=== PATIENT | male | born 1970 | race Caucasian/White ===

== ENCOUNTER 2021-07-26 01:41 | Observation (INO) | payer BC, SELFPAY ==
[2021-07-26] VITALS (14 sets, daily range): BP systolic 108–146; BP diastolic 64–93; PULSE 84–115; RESP 16–20; TEMP 35.9–37.2; O2SAT 93–100; BMI 26.7
--- NOTE | ~2021-07-26 | CT_ITS ---
EXAMINATION: CT BRAIN W/O DATE: 07/26/2021 02:37 INDICATION: Hallucinations. TECHNIQUE: Computed tomography (CT) of the head was performed without intravenous contrast. The dose- length product was 605.33 mGy-cm. Automated exposure control and iterative reconstruction technique w ere employed. COMPARISON: No prior studies for comparison. FINDINGS: Normal brain parenchymal volume for age. Normal flores-white differentiation. No acute intrac ranial hemorrhage, infarction, mass or mass effect. No ventriculomegaly or midline shift. Midline sagittal images demonstrate a normal corpus callosum, c raniovertebral junction and sella turcica. Basilar cisterns are patent. Paranasal sinuses and mastoids are pneumatized. No depressed skull fractures. IMPRESSION: 1. No acute intracranial abnormality. Reviewed, dictated and finalized at location A.
--- NOTE | ~2021-07-26 | XR_ITS ---
EXAMINATION: XR chest 1V portable INDICATION: Hyponatremia, unresponsive TECHNIQUE: Portable AP chest at 0913 hours COMPARISON: None available FINDINGS: The lungs are free of acute opacities. There is no pleural effusion or pneumothorax. The ca rdiomediastinal silhouette is normal. IMPRESSION: 1. No acute cardiopulmonary abnormality. Reviewed, dictated and finalized at location B.
--- NOTE | 2021-07-26 01:58 | ED.PSYCH ---
HPI - Psych General Chief Complaint: Psychiatric Symptoms Stated Complaint: Alter Mental Status Time Seen by Provider: 07/26/21 01:54 Source: patient and EMS Mode of arrival: EMS Limitations: clinical condition History of Present Illness HPI Narrative: Pt called PD because he believed armed intruders were breaking in his house. PD said no such thing was occuring. EMS transported here for eval. Pt does not have a known psych history. Pt did take two doses suboxone tonight but has been taking one dose for awhile History of same: No Associated psychiatric symptoms: visual hallucinations Treatments prior to arrival: none Related Data Home Medications Medication Instructions Recorded Confirmed buprenorphine-naloxone [Suboxone] 8 film SUBLINGUAL DIRECTED 07/26/21 07/26/21 gabapentin 400 mg PO DIRECTED 07/26/21 07/26/21 lisinopril 5 mg PO DIRECTED 07/26/21 07/26/21 metformin 500 mg PO DIRECTED 07/26/21 07/26/21 metoprolol tartrate 25 mg PO DIRECTED 07/26/21 07/26/21 Allergies Allergy/AdvReac Type Severity Reaction Status Date / Time No Known Allergies Allergy Verified 07/26/21 01:49 Review of Systems Review of Systems: All systems reviewed & are unremarkable except as noted in HPI and below [facility] Social History Social History Substance use type: prescription drug Exam Const: General: no acute distress Orientation/consciousness: patient oriented x3 HENMT: Head: normal to inspection Eyes: Conjunctivae: conjunctivae normal Pupils: Equal, round and reactive pupils present Neck: Neck: normal visual inspection Resp: Effort & Inspection: normal respiratory effort Auscultation: clear to auscultation bilaterally Cardio: Rate: regular rate Rhythm: regular rhythm GI: GI Palp: Yes Soft to palpation Auscultation: normal bowel sounds Skin: General skin exam: normal color Neuro: General: patient oriented x3, moves all extremities, no meningeal signs, no focal motor deficits and CN's II-XI intact bilaterally Cranial nerves: Yes Nystagmus not present Extrem: General: normal to inspection Psych: Appearance: grossly normal Attitude: cooperative Thought content: Yes Paranoid delusions present and Yes Hallucination(s) present Course Course Emergency Course: pt wants to leave and does not want IV fluids to correct his sodium. Pt is convinced his is here standing outside the room. Pt not capable of making informed decision and should not leave and is not capable of signing AMA right now. Unable to contact . Will call PD to assist in restraining and sedating the patient in order to treat him. PD has arrived. Will attempt to start IV and give fluids and sedation. signing out to dr love at 0600 Vital Signs Vital signs: Vital Signs Temperature 98.9 F 07/26/21 01:40 Pulse Rate 84 07/26/21 01:40 Respiratory Rate 16 07/26/21 01:40 Blood Pressure 141/93 H 07/26/21 01:40 Pulse Oximetry 96 07/26/21 01:40 Temperature 96.7 F L 07/26/21 05:13 Pulse Rate 115 H 07/26/21 05:13 Respiratory Rate 20 07/26/21 05:13 Blood Pressure 130/86 07/26/21 05:13 Pulse Oximetry 99 07/26/21 05:13 MDM - Psych Differential Diagnosis Differential diagnosis: Likely acute psychosis and drug-induced psychotic disorder Lab Data Attestation: I reviewed the patient's lab results. Lab results narrative: CT head negative Result diagrams: 07/26/21 02:10 07/26/21 02:10 Labs: Lab Results 07/26/21 07/26/21 07/26/21 Range/Units 02:10 02:10 02:10 WBC 11.1 H (4.8-10.8) K/mm3 RBC 3.70 L (4.70-6.10) M/mm3 Hgb 14.1 (14.0-18.0) g/dL Hct 40.9 (40.0-54.0) % MCV 110.5 H (78.0-102.0) fL MCH 38.1 H (27.0-31.0) pg MCHC 34.5 (32.0-36.0) g/dL RDW 12.5 (11.6-14.4) % Plt Count 104 L (150-420) K/mm3 MPV 10.5 (8.7-11.0) fl Immature Gran % (Auto) 0.6 H (0.0-0.0) % Neut % (Auto) 72.5 H (50.0-70.0) % Lymph
[2021-07-26 02:13] LABS: Basophils Absolute Auto 0.03 K/mm3 (0.00-0.10); Basophils Percent Auto 0.3 % (0.0-1.0); Eosinophils Percent Auto 0.9 % (1.0-6.0); Hematocrit 40.9 % (40.0-54.0); Hemoglobin 14.1 g/dL (14.0-18.0); Immature Granulocyte Absolute 0.07 K/mm3 (0.00-0.00); Immature Granulocyte Percent A 0.6 % (0.0-0.0); Lymphocytes Absolute Auto 2.04 K/mm3 (1.10-4.50); Lymphocytes Percent Auto 18.4 % (18.0-42.0); Mean Corpuscular HGB Conc 34.5 g/dL (32.0-36.0); Mean Corpuscular Hemoglobin 38.1 pg (27.0-31.0); Mean Corpuscular Volume 110.5 fL (78.0-102.0); Mean Platelet Volume 10.5 fl (8.7-11.0); Monocytes Absolute Auto 0.81 K/mm3 (0.10-0.90); Monocytes Percent Auto 7.3 % (2.0-11.0); Neutrophils Percent Auto 72.5 % (50.0-70.0); Platelet Count Result 104 K/mm3 (150-420); Red Cell Distribution Width 12.5 % (11.6-14.4); White Blood Count 11.1 K/mm3 (4.8-10.8)
[2021-07-26 02:31] LABS: Amphetamine Screen Urine Negative (Negative); Barbiturate Screen Urine Negative (Negative); Benzodiazepines Screen Urine Negative (Negative); Cannabinoid Screen Urine Negative (Negative); Cocaine Screen Urine Negative (Negative); Methadone Screen Urine Negative (Negative); Opiate Screen Urine Negative (Negative)
[2021-07-26 02:37] LABS: Alanine Aminotransferase 54 U/L (16-63); Albumin Level 3.5 g/dL (3.4-5.0); Alkaline Phosphatase 116 U/L (46-116); Anion Gap 12 mmol/L (8-16); Aspartate Amino Transferase 99 U/L (15-37); Bilirubin,Total 4.7 mg/dL (0.00-1.00); Blood Urea Nitrogen 17 mg/dL (7-18); Calcium 8.8 mg/dL (8.5-10.1); Carbon Dioxide 24 mmol/L (21-32); Chloride 88 mmol/L (98-108); Estimated CRCL calculation 77 ml/min; Estimated Glomerular Filt Rate > 60; Glucose 125 mg/dL (70-99); Osmolality Calculated 260 mOsm/kg (285-295); Potassium 3.8 mmol/L (3.5-5.1); Salicylate 0.4 mg/dL (2.8-20.0); Sodium 124 mmol/L (136-145); Thyroid Stimulating Hormone 2.44 uIU/mL (0.36-3.74); Total Protein 7.9 g/dL (6.4-8.2)
[2021-07-26 02:38] LABS: Acetaminophen < 2 ug/mL (10-30); Ethanol < 3 mg/dL (0-6)
--- NOTE | 2021-07-26 02:50 | PC.NURSE ---
RN updated pt on his lab results. RN educated on the importance of treatment and receiving IV fluids, but pt refused treatment stating he wanted to leave AMA. RN educated pt on the risks(up to ) of leaving without treatment. RN called pt's and got a voicemail. RN left a message and number to return a call. Pt is confused and does not want treatment.
[2021-07-26] MEDS: SODIUM CHLORIDE 0.9% IV 1,000 ML 125 ML IV CONT (03:19)
[2021-07-26] MEDS: LORazepam INJ (*CRX) 2 MG/ML VIAL IV PUSH ×2 (03:20→05:05)
[2021-07-26 04:34] LABS: Glucose Point of Care 88 mg/dl (65-105)
--- NOTE | 2021-07-26 04:39 | PC.NURSE ---
Pt is still confused and having visual hallucinations. Pt describes seeing children playing at the end of the waller. Pt is being cooperative and is able to be redirected. RN reassessed pt's blood glucose via finger stick and obtained a reading of 88. Pt has no complaints at this time. RN started sitter log at this time.
--- NOTE | 2021-07-26 04:55 | PC.NURSE ---
RN phoned ERP due to pt being restless and still confused. Pt is still able to be redirected and cooperating with staff. ERP ordered 2mg Ativan IV STAT. RN read back order.
--- NOTE | 2021-07-26 05:17 | PC.NURSE ---
Pt becoming more confused and agitated. Pt is becoming warm and diaphoretic. Pt is not able to be redirected at this time. RN alerted ERP for the possibility of restraints for the pt's protection.
--- NOTE | 2021-07-26 05:51 | PC.NURSE ---
Nursing staff applied Velcro restraints after all other alternatives were unsuccessful. RN attempted to divert, educate, have a sitter, reorientate, and had two 2mg Ativan IV injections. Pt was still pulling on IV line and not following directions. The restraints were applied. PMS was present after restraints were applied. Pt was moved to room 1 and placed on monitor. Pt has no complaints or requests at this time. RN was finally able to make contact with pt's . Pt's stated she will be on the way to the hospital.
--- NOTE | 2021-07-26 06:02 | PC.NURSE ---
RN team released pt from tied down restraints due to pt sleeping.
[2021-07-26] MEDS: DEXTROSE 5%/0.9% SOD CHL 500 ML 100 ML IV CONT (06:33)
[2021-07-26] MEDS: THIAMINE HCL 200 MG/2 ML VIAL 100 MG IV PUSH (06:34)
[2021-07-26 09:27] LABS: Anion Gap 10 mmol/L (8-16); Blood Urea Nitrogen 17 mg/dL (7-18); Calcium 8.8 mg/dL (8.5-10.1); Carbon Dioxide 25 mmol/L (21-32); Chloride 95 mmol/L (98-108); Estimated CRCL calculation 88 ml/min; Estimated Glomerular Filt Rate > 60; Glucose 105 mg/dL (70-99); Osmolality Calculated 271 mOsm/kg (285-295); Potassium 4.4 mmol/L (3.5-5.1); Sodium 130 mmol/L (136-145)
[2021-07-26 09:51] LABS: Phosphorus 3.3 mg/dL (2.6-4.7)
[2021-07-26 09:51] LABS: Troponin I 5.7 ng/L (0.00-60.4)
[2021-07-26 09:51] LABS: Lipase 98 U/L (73-393); Magnesium 1.4 mg/dL (1.8-2.4)
--- NOTE | 2021-07-26 10:12 | ECG_ITS ---
Measurements Intervals [place] Rate: 91 P: 71 OR: 150 QRS: 41 QRSD: 92 T: 41 QT: 370 QTc: 457 Interpretive Statements SINUS RHYTHM POSSIBLE LEFT ATRIAL ENLARGEMENT [-0.1mV P-WAVE IN V1/V2] BORDERLINE ECG NO PREVIOUS ECG AVAILABLE FOR COMPARISON Electronically Signed On 07-26-2021 13:50:11 CDT by Polo Fenton M.D.
--- NOTE | 2021-07-26 10:19 | PC.NURSE ---
0700 PT RESTING QUIETLY RESTRAINTS ARE OFF 0720 PT UP TO BATHROOM KAYLAH FAIR PT PULLED OUT IV
--- NOTE | 2021-07-26 10:59 | PHAR ---
SPOKE WITH MARY NAYAK AT [facility] IN [place] TO CLARIFY PT.'S HOME MEDS THAT WERE ENTERED. PT. TAKES METFORMIN 500MG ER BID (LAST FILL 06/12/21), LISINOPRIL 40MG DAILY (LAST FILL 06/12/21), GABAPENTIN 400MG #2 PO TID (800MG TID, LAST FILL 07/10/21), METOPROLOL 50MG Q12HR (LAST FILL 06/12/21), SUBOXONE 8/2MG FILM DAILY (LAST FILL 07/10/21). PRESCRIBER IS JANEY DE LA O AT THE CLINIC PER NAEL HERNANDEZ. TLS
[2021-07-26] MEDS: MAGNESIUM SULF 2 GM/WATER 50ML 2 GM/50 ML BAG IVPB (11:18)
[2021-07-26 11:34] LABS: Glucose Point of Care 98 mg/dl (65-105)
[2021-07-26] MEDS: GABAPENTIN 400 MG CAPSULE 800 MG PO ×2 (11:41→16:54)
[2021-07-26] MEDS: chlordiazePOXIDE (*CRX) 25 MG CAPSULE PO ×2 (11:41→18:08)
--- NOTE | 2021-07-26 12:02 | ADMGEN ---
This patient, Tyrel Braron, was admitted to 2nd Floor Room 207-2. Patient/family oriented to hospital policies and general routines including ID bracelet, bed and alarms, visiting hours, pain management, procedures, bathroom and other care routines, personal items, smoking policy, room service/diet, and visiting hours. Information on how to activate the Rapid Response Team has been discussed. Patient/Family are encouraged to report perceived risks to care and to ask questions if they do not understand what they are told or what they should do. Spouse arrived at bedside. Assisted to answer admission questions. Argument ensued and spouse left hospital.
[2021-07-26] MEDS: SODIUM CHLORIDE 0.9% IV 1,000 ML 75 ML IV CONT (12:37)
[2021-07-26] MEDS: NICOTINE (*PBKC) 21 MG PATCH 1 PATCH TRANSDERM (12:52)
[2021-07-26 16:58] LABS: Glucose Point of Care 109 mg/dl (65-105)
--- NOTE | 2021-07-26 18:16 | PC.NURSE ---
is in room visiting, pt has called her multiple times to ask if she will take him home tonight, pt is aware that he is not being discharged at this time, fluids running, bed alarm on
[2021-07-26] MEDS: METOPROLOL TARTRATE 50 MG TAB PO (20:17)
[2021-07-26 20:19] LABS: Glucose Point of Care 106 mg/dl (65-105)
[2021-07-27] VITALS: BP 138/97; PULSE 79; RESP 18; TEMP 36.2; O2SAT 93
[2021-07-27] MEDS: SODIUM CHLORIDE 0.9% IV 1,000 ML 75 ML IV CONT (00:14)
[2021-07-27] MEDS: chlordiazePOXIDE (*CRX) 25 MG CAPSULE PO ×2 (00:14→06:05)
[2021-07-27 04:58] LABS: Hematocrit 39.4 % (40.0-54.0); Hemoglobin 13.2 g/dL (14.0-18.0); Mean Corpuscular HGB Conc 33.5 g/dL (32.0-36.0); Mean Corpuscular Hemoglobin 37.8 pg (27.0-31.0); Mean Corpuscular Volume 112.9 fL (78.0-102.0); Platelet Count Result 95 K/mm3 (150-420); Red Blood Count 3.49 M/mm3 (4.70-6.10); Red Cell Distribution Width 13.1 % (11.6-14.4)
[2021-07-27 05:10] LABS: Anion Gap 9 mmol/L (8-16); Blood Urea Nitrogen 12 mg/dL (7-18); Calcium 8.6 mg/dL (8.5-10.1); Carbon Dioxide 26 mmol/L (21-32); Chloride 98 mmol/L (98-108); Estimated CRCL calculation 146 ml/min; Estimated Glomerular Filt Rate > 60; Glucose 97 mg/dL (70-99); Magnesium 2.1 mg/dL (1.8-2.4); Osmolality Calculated 275 mOsm/kg (285-295); Potassium 4.2 mmol/L (3.5-5.1); Sodium 133 mmol/L (136-145)
[2021-07-27 07:39] LABS: Glucose Point of Care 97 mg/dl (65-105)
[2021-07-27 08:00] VITALS: BP 173/91; PULSE 84; RESP 18; TEMP 36.7; O2SAT 99
[2021-07-27] MEDS: GABAPENTIN 400 MG CAPSULE 800 MG PO (08:05)
[2021-07-27 08:06] VITALS: PULSE 84
[2021-07-27] MEDS: METOPROLOL TARTRATE 50 MG TAB PO (08:06)
[2021-07-27] MEDS: THIAMINE HCL 100 MG TABLET PO (08:06)
[2021-07-27] MEDS: lisinopriL 20 MG TABLET 40 MG PO (08:06)
[2021-07-27] MEDS: FOLIC ACID 1 MG TABLET PO (08:07)
[2021-07-27] MEDS: NICOTINE (*PBKC) 21 MG PATCH 1 PATCH TRANSDERM (08:07)
--- NOTE | 2021-07-27 09:02 | PM.SD2 ---
Same Day Admit/Disch: [facility] History of Present Illness Chief complaint: ELECTROLYTE IMBALANCE ALCOHOL WITHDRAWAL Narrative: Tyrel Barron is a 51 year old male that presented to our emergency department with altered mental status and visual hallucinations in caused by withdrawal symptoms. Patient has a past medical history of substance abuse ,alcoholism, hypertension, and diabetes. Patient was a poor historian on admission and cannot recall what happened before admission. Today he is more alert and orientated and ready for discharge. Patient was given Ativan in physically restrained while in the ED patient. Patient has improved since his admission he is no longer being restrained and is not having hallucinations. Patient being admitted for electrolyte imbalance and metabolic encephalitis. WBCs 11.1, hemoglobin 14.1, hematocrit 40.9, platelets 104, sodium 124, potassium 3.8, BUN 17, creatinine 0.16, glucose 125, magnesium 1.4, total bili 4.7, AST 99, ALT 54, troponin 5.7, lipase 98, TSH 2.44, toxicology negative CT the head and chest x-ray unremarkable, EKG sinus rhythm with a heart rate of 91. Patient is at baseline on discharge she will discharge home with Librium to assist with his withdrawal symptoms he was also given referrals to support groups. The patient denies SOB, CP, palpitation, extremity numbness, lightheadedness, dizziness, constipation, diarrhea, chills, or fever. PMFSH Social History Social History Smoking packs per day: 1.5 Smoking cigarettes per day: 30.0 Years smoked: 37 Smoking pack-years: 55.50 Smoking status: Current every day smoker Tobacco type: cigarettes Second hand tobacco smoke exposure: Yes Alcohol intake: current Drinks per week: 112 Substance use: current Substance use type: other Other substance usage details: saboxone Spiritual care concerns: No Same Day Admit/Disch: Med Pre-admit Medications Home Medications Medication Instructions Recorded Confirmed Type buprenorphine-naloxone [Suboxone] 8 film SUBLINGUAL DAILY 07/26/21 07/26/21 History chlordiazepoxide HCl 5 mg PO BID PRN #18 cap 07/26/21 Rx gabapentin 800 mg PO TID 07/26/21 07/26/21 History lisinopril 40 mg PO DAILY 07/26/21 07/26/21 History metformin 500 mg PO BID 07/26/21 07/26/21 History metoprolol tartrate 50 mg PO Q12H 07/26/21 07/26/21 History folic acid 1 mg PO DAILY #30 tablet 07/27/21 Rx thiamine HCl (vitamin B1) 100 mg PO DAILY #30 tablet 07/27/21 Rx Exam Narrative: GENERAL: This is a well-nourished, well-developed patient, in no apparent distress. HEAD: normocephalic, atraumatic. EYES: PERRL. Sclera clear/white. Vision is grossly intact. EARS: External ears normal, auditory canals clear and without drainage, TMs normal without perforation. Hearing grossly intact. NOSE: External nose normal with no obvious nasal discharge, nares without redness, no rhinorrhea. THROAT: Mucous membranes moist, posterior pharynx clear. NECK: Neck supple, non-tender without lymphadenopathy, masses or thyromegaly. CARDIOVASCULAR: Regular rate and rhythm without murmurs, gallops, or rubs. RESPIRATORY: Clear to auscultation. Breath sounds equal bilaterally. No wheezes, rales, or rhonchi. GASTROINTESTINAL: Abdomen soft, non-tender, nondistended. Bowel sounds are active. No hepato-splenomegaly, or palpable masses. No guarding. SKIN: warm, intact with no suspicious lesions or rash, good texture and turgor. NEURO: awake, alert, and oriented to person, place and time. There were no obvious focal neurologic abnormalities. Steady gait EXTREMITIES: Normal range of motion. No edema. No calf tenderness. Negative Homans sign bilaterally. BACK: Nontender without deformity or crepitance. No flank tenderness. DS: Data Data Completed and Pending Labs on day of discharge: Labs from last 24 hours 07/27/21 07/27/21 07/27/21 07:33 04:53 04:53 WBC 7.0 RBC 3.49 L Hgb 13.2 L Hct 39.4 L MCV 112.9 H MCH 37.8 H M
--- NOTE | 2021-07-27 09:20 | PC.NURSE ---
Patient discharged to home and escorted to lobby by group underwriter in w/c. Discharge instructions given to patient. Patient verbalized understanding. Personal belongings sent home with patient. Picked up by private vehicle.
--- NOTE | 2021-08-01 10:25 | PC.NURSE ---
Pt states he received and understood his discharge instructions. Pt states you elisabeth did a wonderful job .
== END 2021-07-27 09:20 | disposition home or self-care (01) ==
LOC: CHSED 07:29 → CHS2ND 10:17
PROVIDERS: Emergency Medicine; Nurse Practitioner; Admitting Provider Internal Medicine; Emergency Provider Internal Medicine Critical Care Medicine; Visit Provider Internal Medicine
DX: F10.239 Alcohol dependence with withdrawal, unspecified (principal); E87.1 Hypo-osmolality and hyponatremia; G93.41 Metabolic encephalopathy; K70.10 Alcoholic hepatitis without ascites; R44.1 Visual hallucinations; F17.210 Nicotine dependence, cigarettes, uncomplicated; Z79.899 Other long term (current) drug therapy
CPT/HCPCS: 36415; 70450; 71045; 80048; 80053; 80307; 82948; 83690; 83735; 84100; 84443; 84484; 85025; 85027; 93005; 96361; 96365; 96375; 96376; 99285; A9270; G0378; J2060; J3411; J3475; J7030; J7042